=== PATIENT | female | born 1985 | race African-American/Black ===

== ENCOUNTER 2019-07-25 18:10 | Inpatient (IN) | payer OTHER, SELFPAY ==
[2019-07-25] VITALS (14 sets, daily range): BP systolic 102–128; BP diastolic 57–89; PULSE 90–99; TEMP 36.9; BMI 33.3
[2019-07-25] MEDS: DINOPROSTONE 10 MG VAG INSERT VAGINAL (19:51)
[2019-07-25 20:08] LABS: Basophils Percent Auto 0.1 % (0.2-1.2); Eosinophils Absolute Auto 0.2 K/mm3 (0-0.3); Eosinophils Percent Auto 1.9 % (0-4.4); Hematocrit 34.7 % (37.0-47.0); Hemoglobin 11.1 g/dL (12.0-15.0); Immature Granulocyte Absolute 0.11 K/mm3 (0.00-0.031); Immature Granulocyte Percent A 1.2 % (0-0.5); Lymphocytes Absolute Auto 1.59 K/mm3 (0.9-3.2); Lymphocytes Percent Auto 17.7 % (18.3-44.2); Mean Corpuscular Hemoglobin 27.9 pg (26-34); Mean Corpuscular Volume 87.2 fl (80-100); Mean Platelet Volume 12.9 fl (7.4-10.4); Monocytes Absolute Auto 0.7 K/mm3 (0.1-0.6); Monocytes Percent Auto 7.9 % (2.6-8.5); Neutrophils Absolute Auto 6.4 K/mm3 (1.3-6.7); Neutrophils Percent Auto 71.2 % (45.5-73.1); Platelet Count Result 213 k/mm3 (150-375); Red Blood Count 3.98 M/mm3 (4.2-5.4); Red Cell Distribution Width 14.1 % (11.5-14.5)
--- NOTE | 2019-07-25 20:23 | LDADM ---
This patient, Yuliya Gtz, was admitted to Labor/Delivery/Recovery 106 on 07/25/19 at 18:10. Plans for labor, pain management and were discussed with patient. Patient/family oriented to hospital policies and general routines including ID bracelet, bed and alarms, visiting hours, pain management, procedures, bathroom and other care routines, personal items, smoking policy, room service/diet and guest tray routines, security routines, and visiting hours. Patient/Family are encouraged to report perceived risks to care and to ask questions if they do not understand what they are told or what they should do. See OBIX for further documentation.
[2019-07-25] MEDS: ZOLPIDEM TARTRATE 5 MG TABLET PO (22:07)
[2019-07-26] VITALS (130 sets, daily range): BP systolic 84–149; BP diastolic 44–112; PULSE 74–135; RESP 16–20; TEMP 36.7–37.7; O2SAT 94–100
[2019-07-26] MEDS: ONDANSETRON INJ 4 MG/2 ML VIAL IV PUSH (01:30)
[2019-07-26] MEDS: LACTATED RINGERS 1,000 ML 125 ML IV CONT ×4 (01:37→06:19)
--- NOTE | 2019-07-26 03:44 | WPDANESEPP ---
Anes - Eval Pre Procedure Procedure: Labor epidural Date/Time: 07/26/19 03:44 Surgeon: heather mendenhall Preop Diagnosis: Abd pain with contractions Pre Op Diagnosis: Induction Patient Data Age: 33 Gender: F Height: 5 ft 2 in Weight: 82.7 kg Last Vital Signs Temp 99.7 F H 07/26/19 02:16 Pulse 94 07/26/19 02:45 BP 124/85 07/26/19 02:45 Allergies Allergy/AdvReac Type Severity Reaction Status Date / Time gluten Allergy Headache Verified 06/27/19 13:40 mold Allergy Itching Verified 06/27/19 13:40 pollen extracts Allergy Sneezing Verified 06/27/19 13:40 shellfish derived Allergy Unknown Verified 06/27/19 13:40 Yeast Allergy Headache Verified 06/27/19 13:40 Home Medications Medication Instructions Recorded Confirmed Type PNV cmb#95-ferrous fumarate-FA 1 tablet PO DAILY 06/27/19 06/27/19 History [] ferrous sulfate [Iron (ferrous 325 mg PO DAILY 06/27/19 06/27/19 History sulfate)] fluticasone propionate [Flonase 1 spray INTRANASAL DAILY 06/27/19 06/27/19 History Allergy Relief] Laboratory Tests 07/25/19 07/25/19 07/25/19 19:51 19:51 19:51 WBC 9.0 K/mm3 K/mm3 (4.5-10.0) RBC 3.98 M/mm3 L M/mm3 (4.2-5.4) Hgb 11.1 g/dL L g/dL (12.0-15.0) Hct 34.7 % L % (37.0-47.0) MCV 87.2 fl fl (80-100) MCH 27.9 pg pg (26-34) MCHC 32.0 g/dl g/dl (32-36) RDW 14.1 % % (11.5-14.5) Plt Count 213 k/mm3 k/mm3 (150-375) MPV 12.9 fl H fl (7.4-10.4) Immature Gran % (Auto) 1.2 % H % (0-0.5) Neut % (Auto) 71.2 % % (45.5-73.1) Lymph % (Auto) 17.7 % L % (18.3-44.2) [place] % (Auto) 7.9 % % (2.6-8.5) Eos % (Auto) 1.9 % % (0-4.4) Baso % (Auto) 0.1 % L % (0.2-1.2) Lymph # (Auto) 1.59 K/mm3 K/mm3 (0.9-3.2) [place] # (Auto) 0.7 K/mm3 H K/mm3 (0.1-0.6) Eos # (Auto) 0.2 K/mm3 K/mm3 (0-0.3) Baso # (Auto) 0.0 K/mm3 K/mm3 (0.0-0.1) Abs Immat Gran (auto) 0.11 K/mm3 H K/mm3 (0.00-0.031) Absolute Neuts (auto) 6.4 K/mm3 K/mm3 (1.3-6.7) Absolute Nucleated RBC 0.0 K/mm3 K/mm3 (0.0-0.012) Nucleated RBC % 0.0 % % (0.0-0.2) RPR Pending Blood Type A Positive Antibody Screen Negative Patient hx anesthesia problems: none Family hx anesthesia problems: none PMFSH Past Medical History Medical History Anemia Asthma GERD (gastroesophageal reflux disease) Over weight and not yet delivered Family History Family History Grandparent Hypertension Colon cancer Mother Hypertension Social History Social History Smoking status: Never smoker Substance use: never Spiritual care concerns: No Exam Day of Procedure 07/26/19 03:44 Patient weight: overweight Airway: Mallampati scale class II Neurological: alert and oriented
--- NOTE | 2019-07-26 05:11 | P.PNOB_ITS ---
OB - PN: Subj Subjective Date/time seen: 07/26/19 05:11 cx 9/100/-2 arom clear variables present OB - PN: Obj Data Labs CBC & Chem 7: 07/25/19 19:51 Labs: Laboratory Results - last 24 hr 07/25/19 07/25/19 19:51 19:51 WBC 9.0 RBC 3.98 L Hgb 11.1 L Hct 34.7 L MCV 87.2 MCH 27.9 MCHC 32.0 RDW 14.1 Plt Count 213 MPV 12.9 H Immature Gran % (Auto) 1.2 H Neut % (Auto) 71.2 Lymph % (Auto) 17.7 L [place] % (Auto) 7.9 Eos % (Auto) 1.9 Baso % (Auto) 0.1 L Lymph # (Auto) 1.59 [place] # (Auto) 0.7 H Eos # (Auto) 0.2 Baso # (Auto) 0.0 Abs Immat Gran (auto) 0.11 H Absolute Neuts (auto) 6.4 Absolute Nucleated RBC 0.0 Nucleated RBC % 0.0 Blood Type A Positive Antibody Screen Negative OB - PN A/P Time Spent With Patient Time: Total time spent is greater than 50% in coordination of care (as documented) at patient's floor/unit and/or counseling patient:
--- NOTE | 2019-07-26 05:12 | PM.IMHP ---
H&P: HPI History of Present Illness Chief complaint: Induction Narrative: Yuliya Gtz is a 33 year old female whose last menstrual period was 10/19/2018, EDC is 07/26/2019, presents at term for induction of labor. Has an early ultrasound confirming dates. Her has been uncomplicated Review of Systems Review of Systems: All systems reviewed & are unremarkable except as noted in HPI and below PMFSH Past Medical History Medical History Anemia Asthma GERD (gastroesophageal reflux disease) Over weight and not yet delivered Family History Family History Grandparent Hypertension Colon cancer Mother Hypertension Social History Social History Smoking status: Never smoker Substance use: never Spiritual care concerns: No Meds Home Medications and Allergies Home Medications Medication Instructions Recorded Confirmed Type PNV cmb#95-ferrous fumarate-FA 1 tablet PO DAILY 06/27/19 06/27/19 History [] ferrous sulfate [Iron (ferrous 325 mg PO DAILY 06/27/19 06/27/19 History sulfate)] fluticasone propionate [Flonase 1 spray INTRANASAL DAILY 06/27/19 06/27/19 History Allergy Relief] Allergies Allergy/AdvReac Type Severity Reaction Status Date / Time gluten Allergy Headache Verified 06/27/19 13:40 mold Allergy Itching Verified 06/27/19 13:40 pollen extracts Allergy Sneezing Verified 06/27/19 13:40 shellfish derived Allergy Unknown Verified 06/27/19 13:40 Yeast Allergy Headache Verified 06/27/19 13:40 Vital Signs Vital Signs - 24 hr 07/25/19 18:15 07/25/19 18:36 07/25/19 18:45 Temperature 98.5 F Pulse Rate 91 95 Blood Pressure 113/62 113/69 Pulse Oximetry 07/25/19 19:00 07/25/19 20:00 07/25/19 20:15 Temperature Pulse Rate 94 93 91 Blood Pressure 122/89 120/57 L 102/83 Pulse Oximetry 07/25/19 20:30 07/25/19 20:45 07/25/19 21:00 Temperature Pulse Rate 93 90 93 Blood Pressure 124/72 122/69 118/72 Pulse Oximetry 07/25/19 21:15 07/25/19 21:30 07/25/19 21:45 Temperature Pulse Rate 99 94 98 Blood Pressure 121/78 127/71 128/68 Pulse Oximetry 07/25/19 22:00 07/25/19 22:02 07/26/19 01:26 Temperature 98.5 F 98.6 F Pulse Rate 97 Blood Pressure 119/73 Pulse Oximetry 07/26/19 01:46 07/26/19 02:01 07/26/19 02:16 Temperature 99.7 F H Pulse Rate 113 H 93 Blood Pressure 124/87 115/71 Pulse Oximetry 07/26/19 02:30 07/26/19 02:45 07/26/19 03:54 Temperature Pulse Rate 90 94 114 H Blood Pressure 109/59 L 124/85 138/100 H Pulse Oximetry 97 07/26/19 03:55 07/26/19 03:57 07/26/19 03:58 Temperature Pulse Rate 111 H 103 H 109 H Blood Pressure 147/80 H 134/78 129/83 Pulse Oximetry 98 07/26/19 04:00 07/26/19 04:05 07/26/19 04:07 Temperature Pulse Rate 104 H 118 H Blood Pressure 108/84 149/79 H Pulse Oximetry 99 96 07/26/19 04:09 07/26/19 04:10 07/26/19 04:11 Temperature 99.5 F Pulse Rate 94 88 Blood Pressure 113/88 134/112 H Pulse Oximetry 98 07/26/19 04:12 07/26/19 04:14 07/26/19 04:15 Temperature Pulse Rate 83 92 87 Blood Pressure 130/63 126/73 121/60 Pulse Oximetry 98 07/26/19 04:17 07/26/19 04:20 07/26/19 04:25 Temperature Pulse Rate 96 82 95 Blood Pressure 126/62 128/59 L 119/61 Pulse Oximetry 98 99 07/26/19 04:28 07/26/19 04:30 07/26/19 04:33 Temperature Pulse Rate 84 100 93 Blood Pressure 127/65 133/83 113/69 Pulse Oximetry 99 07/26/19 04:35 07/26/19 04:40 07/26/19 04:45 Temperature Pulse Rate 129 H 83 Blood Pressure 114/56 L 147/83 H Pulse Oximetry 100 100 99 07/26/19 04:50 07/26/19 04:55 07/26/19 05:00 Temperature Pulse Rate 102 H Blood Pressure 124/66 Pulse Oximetry 99 99 98 07/26/19 05:05 07/26/19 05:10 Tem
[2019-07-26 07:17] LABS: Rapid Plasma Reagin Non-Reactive (NonReactive)
[2019-07-26] MEDS: OXYTOCIN 30 UNITS/NS 500 ML 30 UNITS/500 ML BAG 6 UNITS IV CONT (08:46)
--- NOTE | 2019-07-26 09:42 | PM.OBPNVD ---
OB - PN: Subj Subjective Date/time seen: 07/26/19 09:42 Interval history: complete/pushing recurrent lates returned head still high offered section OB - PN: Obj Data Labs CBC & Chem 7: 07/25/19 19:51 Labs: Laboratory Results - last 24 hr 07/25/19 07/25/19 07/25/19 19:51 19:51 19:51 WBC 9.0 RBC 3.98 L Hgb 11.1 L Hct 34.7 L MCV 87.2 MCH 27.9 MCHC 32.0 RDW 14.1 Plt Count 213 MPV 12.9 H Immature Gran % (Auto) 1.2 H Neut % (Auto) 71.2 Lymph % (Auto) 17.7 L [place] % (Auto) 7.9 Eos % (Auto) 1.9 Baso % (Auto) 0.1 L Lymph # (Auto) 1.59 [place] # (Auto) 0.7 H Eos # (Auto) 0.2 Baso # (Auto) 0.0 Abs Immat Gran (auto) 0.11 H Absolute Neuts (auto) 6.4 Absolute Nucleated RBC 0.0 Nucleated RBC % 0.0 RPR Non-reactive Blood Type A Positive Antibody Screen Negative OB - PN A/P Time Spent With Patient Time: Total time spent is greater than 50% in coordination of care (as documented) at patient's floor/unit and/or counseling patient:
[2019-07-26] MEDS: ceFAZolin 2 GM/D5W 50 ML 2 GM/50 ML BAG IVPB (10:00)
--- NOTE | 2019-07-26 10:49 | PM.PROC ---
Procedure Note - Detailed Date of procedure: 07/26/19 Pre-op diagnosis: Induction Surgeon: Vick Ochoa MD Postop diagnosis: Failed induction/ intolerance to labor Procedure: Primary low-transverse section EBL: 375cc Anesthesia: Epidural Findings: Male infant 7 lb 11 oz Apgars 7 and 9 at 1 and 5 minutes respectively. Normal appearing ovaries and tubes Complications: None Description of procedure: Patient was brought in for induction of labor with Cervidil she progressed rapidly through the evening did get to completely dilated. The head remained [facility] and she had multiple returned decelerations. The Pitocin O2 hydration repositioned in were all undertaken without success. After obtaining informed consent she was taken to the back prepped and draped in the normal sterile fashion and placed in the supine position. Under excellent epidural anesthesia the abdomen was entered in a Pfannenstiel fashion progressive layers to the fascia. Fascia was incised in upward hours word fashion bilaterally. Underlying muscles sharply dissected. Parietal peritoneum elevated Emy clamps and then by sharp dissection. This was carried superiorly then inferiorly to the dome of the bladder. Bladder blade was formed bladder plate was placed a low bladder blade returned and a low transverse incision made. The head delivered in the YAMILE position. Anterior posterior shoulder delivered spontaneously. Cord was clamped x2 and cut. Infant passed off the table given Apgars of 7 [id number]. Cord blood was drawn. Placenta delivered intact manually. Uterus delivered from the abdomen and wrapped in a moist the uterus after obtaining a clean uterus the uterus was closed with continuous running locking 0 Vicryl from lateral edge to lateral edge. This was followed by a 2nd imbricating running locking 0 Vicryl from lateral edge to lateral edge. Hemostasis was assured. Ovaries and tubes appeared within normal limits. Hemostasis was assured in the uterus returned to the abdomen. The laps removed and accounted for. The fascia closed with continuous running 0 Vicryl from lateral edge to midline bilaterally. Subcutaneous layer closed with 4 O Monocryl and glue. All sponge, needle, instrument counts were correct. Mom and baby doing fine at the time of dictation
[2019-07-26] MEDS: OXYTOCIN 30 UNITS/NS 500 ML 30 UNITS/500 ML BAG 125 UNITS IV CONT (12:58)
--- NOTE | 2019-07-26 14:40 | PC.NURSE ---
Consult with pt., mother bottle fed first feeding due to pain. Offered to assist with this feeding. Mother reports she will bottle feed she is not ready and continues to have pain and does not want to put infant to breast. Reviewed assist is always available, mother should call out when ready to breastfeed.
[2019-07-26] MEDS: KETOROLAC 30 MG/ML VIAL (*BKC) IV PUSH (16:20)
[2019-07-27 00:10] VITALS: BP 122/70; PULSE 90; RESP 17; TEMP 37.2
[2019-07-27 04:15] VITALS: BP 119/65; PULSE 101; RESP 20; TEMP 37.1
[2019-07-27 05:24] LABS: Basophils Percent Auto 0.1 % (0.2-1.2); Eosinophils Absolute Auto 0.1 K/mm3 (0-0.3); Eosinophils Percent Auto 0.4 % (0-4.4); Hematocrit 30.7 % (37.0-47.0); Hemoglobin 9.9 g/dL (12.0-15.0); Immature Granulocyte Absolute 0.07 K/mm3 (0.00-0.031); Immature Granulocyte Percent A 0.5 % (0-0.5); Lymphocytes Percent Auto 5.7 % (18.3-44.2); Mean Corpuscular HGB Conc 32.2 g/dl (32-36); Mean Corpuscular Hemoglobin 27.7 pg (26-34); Mean Platelet Volume 12.8 fl (7.4-10.4); Monocytes Absolute Auto 0.6 K/mm3 (0.1-0.6); Monocytes Percent Auto 4.4 % (2.6-8.5); Neutrophils Absolute Auto 12.5 K/mm3 (1.3-6.7); Neutrophils Percent Auto 88.9 % (45.5-73.1); Platelet Count Result 178 k/mm3 (150-375); Red Blood Count 3.57 M/mm3 (4.2-5.4); Red Cell Distribution Width 13.8 % (11.5-14.5)
--- NOTE | 2019-07-27 06:29 | PM.OBPNVD ---
OB - PN: Subj Subjective Date/time seen: 07/27/19 06:29 Patient comments: no complaints and pain well controlled baby status: doing well and nursing well OB - PN: Obj Data Labs CBC & Chem 7: 07/27/19 04:24 Labs: Laboratory Results - last 24 hr 07/25/19 07/27/19 19:51 04:24 WBC 14.0 H RBC 3.57 L Hgb 9.9 L Hct 30.7 L MCV 86.0 MCH 27.7 MCHC 32.2 RDW 13.8 Plt Count 178 MPV 12.8 H Immature Gran % (Auto) 0.5 Neut % (Auto) 88.9 H Lymph % (Auto) 5.7 L [place] % (Auto) 4.4 Eos % (Auto) 0.4 Baso % (Auto) 0.1 L Lymph # (Auto) 0.80 L [place] # (Auto) 0.6 Eos # (Auto) 0.1 Baso # (Auto) 0.0 Abs Immat Gran (auto) 0.07 H Absolute Neuts (auto) 12.5 H Absolute Nucleated RBC 0.0 Nucleated RBC % 0.0 RPR Non-reactive OB - PN A/P Plan day: 1 Plan: routine care Time Spent With Patient Time: Total time spent is greater than 50% in coordination of care (as documented) at patient's floor/unit and/or counseling patient: Time with patient: less than 15 minutes Review of Systems Review of Systems: All systems reviewed & are unremarkable except as noted in HPI and below Exam Const: General: no acute distress Eyes: General: appearance normal, both eyes and all related structures Neck: Neck: supple and no JVD Thyroid: thyroid normal Resp: Effort & Inspection: normal respiratory effort Auscultation: clear to auscultation bilaterally Cardio: Rate: regular rate Rhythm: regular rhythm GI: Inspection: normal to inspection and incision (cdi) Percussion: Yes normal to percussion Auscultation: normal bowel sounds : General: Yes bladder normal to palpation External Female Exam: normal external appearance Speculum Exam - Vagina: normal vaginal discharge and No vaginal bleeding Speculum Exam - Cervix: nontender Bimanual exam- vagina & uterus: bladder normal to palpation and No Cervical tenderness present OB/external & speculum: No vaginal bleeding Skin: General skin exam: no rashes or lesions noted Extrem: General: normal to inspection and no edema Psych: Mental Status: mental status grossly normal Affect: normal affect
[2019-07-27] MEDS: IBUPROFEN 600 MG TABLET PO ×3 (07:40→23:35)
[2019-07-27] MEDS: MULTIVIT/MIN/PREN/FOL AC/IRON TABLET 1 TAB PO (07:42)
[2019-07-27] MEDS: DOCUSATE SODIUM 100 MG CAPSULE PO ×2 (07:43→16:54)
[2019-07-27] MEDS: POLYSACCHARIDE IRON COMPLEX 150 MG CAPSULE PO ×2 (07:43→16:54)
[2019-07-27 08:50] VITALS: BP 120/75; PULSE 119; RESP 18; TEMP 37.6; O2SAT 97
--- NOTE | 2019-07-27 09:07 | WPDANLDNPN2 ---
Anes-Prog Note L&D-Neuraxial Date/Time: 07/27/19 09:07 Neuraxial medications: epidural PF morphine Opiod-related complaints: none Patient feedback: Patient satisfied with post-operative pain management.
--- NOTE | 2019-07-27 09:07 | WPDANLDPN2 ---
Anes-Prog Note L&D Date/Time: 07/27/19 09:07 Comfortable throughout: section Neuraxial method: epidural Epidural/Spinal procedure site: clean & non-tender Neuro status: Neuro function grossly intact. Cardiovascular status: normal Respiratory status: normal Airway patency: baseline Mental status: baseline Post-Op hydration status: normal Vital Signs: Last Vital Signs Temp 37.1 C 07/27/19 04:15 Pulse 101 H 07/27/19 04:15 Resp 20 07/27/19 04:15 BP 119/65 07/27/19 04:15 Pulse Ox 97 07/26/19 15:00 I/O: Intake & Output 07/26/19 07/27/19 07/27/19 23:59 07:59 15:59 Intake Total 500 1000 Output Total 1975 1800 Balance -3065 -111 Post-procedural complaints: none Patient feedback: Patient satisfied with anesthetic care.
--- NOTE | 2019-07-27 09:15 | PC.NURSE ---
Consult with pt., mother has requested she receive help today with . Mother states she will call out when ready. Reviewed stimulation and milk supply.
--- NOTE | 2019-07-27 13:25 | PC.NURSE ---
Mother called out for assist with feeding. Reviewed feeding cues, frequencies, duration of feedings, feeding elimination flow sheet, and signs of adequate intake. Demonstrated stimulation techniques to wake infant for feeding. Assisted with to breast. Reviewed positioning/alignment in football, holding breast in C hold and guided asymmetrical latch on. Infant was able to latch correctly with first attempt. Infant nursed eagerly, with steady draws and [frequent/occasional] swallowing noted. Reviewed signs of a correct latch, effective nursing and suck swallow ratio. was able to maintain latch without discomfort to mother. Nipple care reviewed. Suggested mother stimulate to keep infant awake and nursing effectively for increased intake and assisting with maintaining deep latch. demonstrated how to adjust latch more deeply while feeding. Mother states she will continue to supplement after breastfeedings until she feels is satisfied with . Instructed mother to call out for RN assistance if she is unable to latch infant for feeding or she has discomfort with nursing. Instructed feeding should be initiated three hours from start of last feeding or if feeding cues are noted before. Mother voiced understanding of information shared.
[2019-07-27] MEDS: SIMETHICONE 80 MG TAB.CHEW PO ×2 (16:56→23:34)
[2019-07-27 18:30] VITALS: BP 115/74; PULSE 108; RESP 20; TEMP 36.9
[2019-07-28] MEDS: SIMETHICONE 80 MG TAB.CHEW PO ×3 (02:15→18:28)
--- NOTE | 2019-07-28 06:47 | PM.OBPNVD ---
OB - PN: Subj Subjective Date/time seen: 07/28/19 06:47 Patient comments: no complaints, pain well controlled and incisional pain [place] baby status: doing well OB - PN: Obj Data Labs CBC & Chem 7: 07/27/19 04:24 OB - PN A/P Plan day: 2 Plan: routine care Time Spent With Patient Time: Total time spent is greater than 50% in coordination of care (as documented) at patient's floor/unit and/or counseling patient: Time with patient: less than 15 minutes Review of Systems Review of Systems: All systems reviewed & are unremarkable except as noted in HPI and below Exam Const: General: no acute distress Eyes: General: appearance normal, both eyes and all related structures Neck: Neck: supple and no JVD Thyroid: thyroid normal Resp: Effort & Inspection: normal respiratory effort Auscultation: clear to auscultation bilaterally Cardio: Rate: regular rate Rhythm: regular rhythm GI: Inspection: non-distended GI Palp: Yes Soft to palpation, No Tenderness to palpation present (GI) and No Guarding due to palpation present (GI) Auscultation: normal bowel sounds : General: Yes bladder normal to palpation External Female Exam: normal external appearance Speculum Exam - Vagina: normal vaginal discharge and No vaginal bleeding Speculum Exam - Cervix: nontender Bimanual exam- vagina & uterus: bladder normal to palpation and No Cervical tenderness present OB/external & speculum: No vaginal bleeding Skin: General skin exam: no rashes or lesions noted Extrem: General: normal to inspection and no edema Psych: Mental Status: mental status grossly normal Affect: normal affect
[2019-07-28 08:25] VITALS: BP 120/72; PULSE 92; RESP 18; TEMP 36.6; O2SAT 99
[2019-07-28] MEDS: POLYSACCHARIDE IRON COMPLEX 150 MG CAPSULE PO ×2 (09:03→18:27)
[2019-07-28] MEDS: MULTIVIT/MIN/PREN/FOL AC/IRON TABLET 1 TAB PO (09:03)
[2019-07-28] MEDS: DOCUSATE SODIUM 100 MG CAPSULE PO ×2 (09:03→18:27)
[2019-07-28] MEDS: IBUPROFEN 600 MG TABLET PO ×2 (09:04→18:29)
--- NOTE | 2019-07-28 12:05 | PC.NURSE ---
Consult with pt., mother reports she has not put to breast since assist previous day. Mother states she will pump and bottle feed. Offered to assist mother with her pump, she reports her mother will assist her with pumping. Discussed stimulation of milk supply and need for regular stimulation. Reviewed pumping schedule, nipple care, and collection and storage of breast milk. Encouraged [id number], breast massage and manual expression to stimulate supply.
[2019-07-28 20:00] VITALS: BP 109/75; PULSE 102; RESP 16; TEMP 37.2; O2SAT 100
[2019-07-29] MEDS: IBUPROFEN 600 MG TABLET PO ×2 (02:27→09:25)
[2019-07-29] MEDS: SIMETHICONE 80 MG TAB.CHEW PO (02:29)
--- NOTE | 2019-07-29 05:42 | PM.OBDSVD ---
OB - DS: Summary OB Procedures : None OB Procedures Intrapartum: OB Procedures: : None Peripartum Data Delivery Method: Section Procedures: Procedures Operation Date: 07/26/19 10:00 Actual Procedures Side Surgeon p Section Vick Ochoa MD complications: none Status at Discharge Functional status at discharge: independent ambulation Overall status at discharge: patient is progressing back to baseline Time Spent with Patient Time attestation: Total time spent providing and/or coordinating discharge services: Time spent: Less than 30 minutes Exam Const: General: comfortable and no acute distress Resp: Effort & Inspection: normal respiratory effort Auscultation: clear to auscultation bilaterally Cardio: Rate: regular rate GI: Inspection: non-distended GI Palp: Yes Soft to palpation, No Firmness to palpation present (GI), Yes Tenderness to palpation present (GI) (mild tenderness over incision ) and No Guarding due to palpation present (GI) Auscultation: normal bowel sounds Psych: Appearance: grossly normal Mental Status: mental status grossly normal Discharge Plan Discharge Discharging Clinician: Pipe Mayes Patient Disposition: Home, Self-Care Activity: as tolerated and pelvic rest Diet: regular Discharge Instructions: call or return for temperature >100.4, bleeding >2 pads/hr for 2 hrs, pain not controlled with medications, signs/symptoms of mastitis Patient Instructions: Antibiotic Form, (DC) Stand Alone Forms: General Discharge Information Follow-up/Referrals: Vick Ochoa MD [Physician] - Discharge Medications: New hydrocodone-acetaminophen 5-325 mg Tablet 1 tab PO Q3H PRN (Reason: Moderate Pain (4-6)) Qty: 28 RF: 0 ibuprofen 600 mg Tablet 600 mg PO Q6H PRN (Reason: Cramping) Qty: 30 RF: 0 Rhe-B-Tueqha Cream 1 applic topical PRN PRN (Reason: Sore Nipples) Qty: 1 RF: 0 acetaminophen [Mapap (acetaminophen)] 325 mg Tablet 650 mg PO Q6H PRN (Reason: Mild Pain (1-3)) Qty: 30 RF: 0 Continued ferrous sulfate [Iron (ferrous sulfate)] 325 mg (65 mg iron) Tablet 325 mg PO DAILY RF: 0 fluticasone propionate [Flonase Allergy Relief] 50 mcg/actuation [place],Suspension 1 spray INTRANASAL DAILY RF: 0 PNV b#95-ferrous fumarate-FA [] 28 mg iron- 800 mcg Tablet 1 tablet PO DAILY RF: 0 Date of admission: 07/25/19 18:10 Primary Care Provider: UNKNOWN,DOCTOR Admitting Provider: Vick Ochoa Attending physician on admission: Vick Ochoa
[2019-07-29 09:20] VITALS: BP 116/79; PULSE 93; RESP 18; TEMP 37
[2019-07-29] MEDS: POLYSACCHARIDE IRON COMPLEX 150 MG CAPSULE PO (09:25)
[2019-07-29] MEDS: DOCUSATE SODIUM 100 MG CAPSULE PO (09:26)
--- NOTE | 2019-07-29 12:00 | PC.NURSE ---
Patient instructed on viewing the discharge video Mother & Baby Care, The First Two Weeks online. Patient was given the opportunity and encouraged to ask questions. Patient verbalized understanding of information shared and has been given the mother/baby guide for home reference.
[2019-07-31 10:33] VITALS: BP 129/75; PULSE 85; RESP 24; TEMP 37
== END 2019-07-29 15:13 | disposition home or self-care (01) | DRG 540 ==
LOC: ANHLDR 07-26 09:49 → ANHOB2 07-28 09:16 → ANHLDR 08-02 07:50 → ANHOB2 08-02 07:50
PROVIDERS: Admitting Provider Obstetrics & Gynecology; Visit Provider Student in an Organized Health Care Education/Training Program
PROC: 10D00Z1 Extraction of Products of Conception, Low, Open Approach (ICD-10-PCS; CPT 59514; principal; 2019-07-26 10:00)
DX: O32.4XX0 Maternal care for high head at term, not applicable or unspecified (principal); O77.9 Labor and delivery complicated by fetal stress, unspecified; O36.8330 Maternal care for abnormalities of the fetal heart rate or rhythm, third trimester, not applicable or unspecified; O77.0 Labor and delivery complicated by meconium in amniotic fluid; Z3A.40 40 weeks gestation of pregnancy; Z37.0 Single live birth
CPT/HCPCS: 36415; 85025; 86592; 86850; 86900; 86901; A9270; J0131; J0690; J1200; J1885; J2274; J2370; J2405; J2590; J2795; J3010; J7120